=== PATIENT | male | born 1980 | race Caucasian/White ===

== ENCOUNTER → 2018-11-12 14:17 | Outpatient (CLI) | payer OTHER, SELFPAY ==
[2018-11-12 14:38] LABS: Basophils Absolute Auto 100 /uL (0-100); Basophils Percent Auto 0.6 % (0-2); Eosinophils Absolute Auto 0 /uL (0-450); Eosinophils Percent Auto 0.4 % (2-4); Hematocrit 42.2 % (41-53); Hemoglobin 13.2 g/dL (13.5-17.5); Lymphocytes Absolute Auto 1200 /uL (1100-4500); Lymphocytes Percent Auto 10.6 % (25-40); Mean Corpuscular HGB Conc 31.3 % (30-36); Mean Corpuscular Hemoglobin 26.1 PG (26-34); Mean Corpuscular Volume 83.3 fL (80-100); Monocytes Absolute Auto 600 /uL (0-900); Monocytes Percent Auto 5.1 % (3-14); Neutrophils Absolute Auto 9200 /uL (1500-7000); Neutrophils Percent Auto 83.3 % (50-75); Platelet Count 287 X10^3/uL (150-400); Red Blood Cell Count 5.07 X10^6/uL (4.5-5.9); Red Cell Distribution Width 16.8 % (11.6-14.8)
[2018-11-12 14:52] LABS: Add Manual Diff / Slide Review SLIDE REVIEW
[2018-11-12 15:18] LABS: RBC Morphology Normal Morphology
== END ==
PROVIDERS: Visit Provider Internal Medicine Gastroenterology
DX: K52.3 Indeterminate colitis (principal)
CPT/HCPCS: 36415; 85025

== ENCOUNTER → 2018-11-18 13:39 | Outpatient (CLI) | payer OTHER, SELFPAY ==
[2018-11-24 23:55] LABS: Calprotectin, Stool 661.7 mcg/g
== END ==
PROVIDERS: Visit Provider Internal Medicine Gastroenterology
DX: K52.3 Indeterminate colitis (principal)
CPT/HCPCS: 83993

== ENCOUNTER → 2019-05-05 15:03 | Outpatient (CLI) | payer OTHER, SELFPAY ==
[2019-05-05 16:14] LABS: Add Manual Diff / Slide Review NO; Basophils Absolute Auto 0 /uL (0-100); Basophils Percent Auto 0.5 % (0-2); Eosinophils Absolute Auto 0 /uL (0-450); Eosinophils Percent Auto 0.3 % (2-4); Hematocrit 44.6 % (41-53); Hemoglobin 14.9 g/dL (13.5-17.5); Lymphocytes Absolute Auto 2000 /uL (1100-4500); Lymphocytes Percent Auto 21.1 % (25-40); Mean Corpuscular HGB Conc 33.3 % (30-36); Mean Corpuscular Hemoglobin 30.1 PG (26-34); Mean Corpuscular Volume 90.3 fL (80-100); Monocytes Absolute Auto 700 /uL (0-900); Monocytes Percent Auto 7.2 % (3-14); Neutrophils Absolute Auto 6600 /uL (1500-7000); Neutrophils Percent Auto 70.9 % (50-75); Platelet Count 201 X10^3/uL (150-400); Red Blood Cell Count 4.94 X10^6/uL (4.5-5.9); Red Cell Distribution Width 13.8 % (11.6-14.8); White Blood Cell Count 9.2 X10^3/uL (4.5-11.0)
== END ==
PROVIDERS: Visit Provider Internal Medicine Gastroenterology
DX: K50.90 Crohn's disease, unspecified, without complications (principal)
CPT/HCPCS: 36415; 85025

== ENCOUNTER → 2019-05-13 13:17 | Outpatient (CLI) | payer OTHER, SELFPAY ==
[2019-05-13 15:41] LABS: Clostridium Difficile Tox PCR Negative for C. diff
== END ==
PROVIDERS: PCP Internal Medicine Gastroenterology; Visit Provider Internal Medicine Gastroenterology
DX: K50.90 Crohn's disease, unspecified, without complications (principal)
CPT/HCPCS: 87045; 87177; 87329; 87493; 87899

== ENCOUNTER 2019-11-20 17:13 | Emergency (ER) | payer OTHER, SELFPAY ==
[2019-11-20 17:21] VITALS: BP 127/76; PULSE 84; RESP 17; TEMP 37.1; O2SAT 99; BMI 24.4
--- NOTE | 2019-11-20 17:47 | PC.NURSE ---
Patient reports burn to left foot at 0100 last evening. States spilled a cup of hot water onto foot. Wound site is currently open to air and wound approximately 3x4cm. Patient denies pain to location. Pedal pulse +2. No limitations in ROM to LLE.
[2019-11-20] MEDS: BACITRACIN OINT 0.9 GM PCKT 3 APPLIC TOP (18:14)
[2019-11-20] MEDS: TET,DIPH,PERTUSS(ACELL),VAC/PF 0.5 ML SYRINGE IM (18:14)
--- NOTE | 2019-11-20 18:22 | ED_ITS ---
HPI - Burn/Smoke Inhalation <RIDGE Ricketts - Last Filed: 11/20/19 18:32> General Chief complaint: Burn/Smoke Inhalation Stated complaint: burn on left foot, hot water Time Seen by Provider: 11/20/19 17:15 Source: patient Mode of arrival: Ambulatory Limitations: no limitations History of Present Illness HPI Narrative: 39yo male presents to the ED for a burn on his left foot. Patient states last evening he spilled boiling water on the top of his left foot. He states afterwards he splashed a small amount of cold water on his foot. He is here mainly because he is afraid it may get infected. He denies any severe pain, fevers, pus, discharge, difficulty moving foot, nausea, vomiting, diarrhea, or any other concerns. Patient denies any injury to the sole of his foot. Related Data Previous Rx's Medication Instructions Recorded oxycodone 5 - 10 mg PO Q6HP PRN #40 tab 11/09/16 Review of Systems <RIDGE Ricketts - Last Filed: 11/20/19 18:32> Review of Systems Narrative: REVIEW OF SYSTEMS: GENERAL: Denies fever or chills. HENT: No head trauma. CARDIOVASCULAR: No chest pain or syncope. RESPIRATORY: No cough. GASTROINTESTINAL: No nausea or vomiting. GENITOURINARY: No flank pain or dysuria. MUSCULOSKELETAL: Complains of burn to left foot, see HPI. INTEGUMENTARY: No rash, lesions, or pruritus. NEURO: No numbness, tingling. PSYCH: No behavior or mood changes. Patient History <RIDGE Ricketts - Last Filed: 11/20/19 18:32> Medical History No significant medical problems (Acute) Social History Smoking Status: Never smoker Smoking Status: Never smoker alcohol intake frequency: holidays/special occasions only Substance Use Type: does not use Exam <RIDGE Ricketts - Last Filed: 11/20/19 18:32> Initial Vital Signs Initial Vital Signs: Vital Signs Temperature 98.8 F 11/20/19 17:21 Pulse Rate 84 11/20/19 17:21 Respiratory Rate 17 11/20/19 17:21 Blood Pressure 127/76 11/20/19 17:21 Pulse Oximetry 99 11/20/19 17:21 PHYSICAL EXAMINATION: GENERAL: Well groomed, alert, and cooperative. Answers questions promptly and appropriately. Vital signs noted. HENT: Normocephalic, atraumatic. EYES: Symmetrical, sclera white, no periorbital swelling.. RESPIRATORY: Normal respiratory rate, trachea midline, airway patent. No stridor, nasal flaring or accessory muscle use. MUSCULOSKELETAL: An 5 cm in diameter 2nd degree burn noted to the top of foot, approximately 11 cm of 1st degree burn ( <1%). Burn does not extend over joints . No purulent drainage. Patient has full range of motion of left foot against resistance without pain. No edwards or lesions to the bottom of foot. Normal gait and coordination. Equal tone and mass bilaterally. EXTREMITIES: CMS intact. Pedal pulses 2+ and intact bilaterally. SKIN: Warm, dry, soft, appropriate color for ethnicity. No lesions, rashes, or wounds. NEURO: Alert and Oriented X 3. No sensory deficits. PSYCH: Appropriate affect and mood. <Andres Thayer MD - Last Filed: 11/20/19 18:51> Initial Vital Signs Initial Vital Signs: Vital Signs Temperature 98.8 F 11/20/19 17:21 Pulse Rate 84 11/20/19 17:21 Respiratory Rate 17 11/20/19 17:21 Blood Pressure 127/76 11/20/19 17:21 Pulse Oximetry 99 11/20/19 17:21 Course <RIDGE Ricketts - Last Filed: 11/20/19 18:32> Course Course Narrative: Patient's Tdap was updated. Orders Ordered: Discontinued Medications Bacitracin (Bacitracin) 3 applic TOP NOW ONE Stop: 11/20/19 17:54 Last Admin: 11/20/19 18:14 Dose: 3 applic Documented by: RMARTIN Diphtheria/Tetanus/Acell Pertussis (Adacel) 0.5 ml IM .ONCE ONE Stop: 11/20/19 18:12 Last Admin: 11/20/19 18:14 Dose: 0.5 ml Documented by: RMROSARIO Vital Signs Vital signs: Vital Signs - 8 hr 11/20/19 17:21 11/20/19 18:29 Temperature 98.8 F Pulse Rate 84 72 Respiratory Rate 17 16 Blood Pressure 127/76 117/71 Pulse Oximetry 99 98 <Andres Thayer MD - Last Filed: 11/20/19 18:51> Orders Ordered: Discontinued Medications Bacitracin (Bacitracin) 3 applic TOP NOW ONE Stop: 11/20/19 17:54 Last Admin: 11/20/19 18:14 Dose: 3 applic Documented by: RMARTIN Diphtheria/Tetanus/Acell Pertussis (Adacel) 0.5 ml IM .ONCE ONE Stop: 11/20/19 18:12 Last Admin: 11/20/19 18:14 Dose: 0.5 ml Documented by: KRISTINE Vital Signs Vital signs: Vital Signs - 8 hr 11/20/19 17:21 11/20/19 18:29 Temperature 98.8 F Pulse Rate 84 72 Respiratory Rate 17 16 Blood Pressure 127/76 117/71 Pulse Oximetry 99 98 MDM - Burn/Smoke Inhalation <RIDGE Ricketts - Last Filed: 11/20/19 18:32> Medical Records Attestation: I reviewed the patient's medical records. Lab Data Attestation: I reviewed the patient's lab results. MDM Narrative Medical decision making narrative: 39-year-old male presents emergency department for a 1st and second-degree burn on the top of left foot. No signs of infection. Within 1% of areas burn, burn does extend over joints. Bacitracin was applied, wound was dressed. Tdap was updated. Patient was educated extensively about watching for signs of infection, he was encouraged to clean the wound frequently and apply Neosporin or bacitracin. Was encouraged to follow up with burn center or primary care. Return precautions given for new or worsening symptoms. Patient agreed to plan of care verbalized understanding. Discharge Plan Departure Patient Disposition: Home Clinical Impression: Burn of foot Qualifiers: Encounter type: initial encounter Laterality: left Burn degree: partial thickness (2nd degree) Qualified Code(s): T25.222A - Burn of second degree of left foot, initial encounter Discharge Date/Time: 11/20/19 18:30 Instructions: DI for [place] Activity Restrictions/Additional Instructions: Thank you for entrusting me with your care today. As discussed, a dressing was placed on your burn, leave this in place for the next 24 hours. After that, you may remove the dressing. Wash your foot with cool water in the shower for 3+ minutes daily. Apply Bacitracin or Neosporin to the area morning and night for the next 2 weeks. Do gentle stretches with your foot 3 to 4 times a day to help your skin heal without tight restrictions. Try to keep your foot out ever shoe as much as possible. In your foot is in your shoe, dressed your wound with caused. Follow-up with your primary care provider in 1-2 weeks for further evaluation. Watch for signs of infection such as redness, pus, pain, worsening swelling, or fevers--if these occur, please be seen immediately. Prescriptions: No Action oxycodone 5 MG tablet 5 - 10 mg PO Q6HP PRNQty: 40 RF: 0 Referrals: Kimberlee Segovia MD [Primary Care Provider] - Stand Alone Forms: Work Release Note
--- NOTE | 2019-11-20 18:24 | PC.NURSE ---
Bacitracin applied to burn and covered with bandage.
[2019-11-20 18:29] VITALS: BP 117/71; PULSE 72; RESP 16; O2SAT 98
== END 2019-11-20 18:30 | disposition home or self-care (01) ==
PROVIDERS: Emergency Provider Nurse Practitioner; PCP Internal Medicine Gastroenterology
DX: T25.222A Burn of second degree of left foot, initial encounter (principal); X12.XXXA Contact with other hot fluids, initial encounter; Z23 Encounter for immunization
CPT/HCPCS: 90471; 99283; 90715

== ENCOUNTER 2020-01-03 23:48 | Emergency (ER) | payer OTHER, SELFPAY ==
[2020-01-03 23:55] VITALS: BP 144/77; PULSE 70; RESP 15; TEMP 36.6; O2SAT 96; BMI 23.7
--- NOTE | 2020-01-04 00:12 | DI.CT.S_ITS ---
PROCEDURE: CT KIDNEY URETER BLADDER (KUB) INDICATIONS: severe lower back and flank pain, hematuria TECHNIQUE: Noncontrast 5 mm thick sections acquired from the diaphragms to the symphysis. 5 mm thick coronal and sagittal reformats were then performed. For radiation dose reduction, the following was used: automated exposure control, adjustment of mA and/or kV according to patient size. COMPARISON: [facility], CR, ABDOMEN 2 VIEW, 11/08/2016, 7:14. [facility], CT, ABDOMEN/PELVIS WITH CONTRAST, 10/09/2015, 15:12. [facility], CR, ABDOMEN ACUTE SERIES, 08/31/2015, 13:03. [facility], CT, ABDOMEN/PELVIS WITH CONTRAST, 08/30/2015, 12:09. FINDINGS: Image quality: Excellent. Lung bases: Lung bases are clear. Heart size is normal. Urinary system: Both kidneys are normal in size. No kidney stones. No hydronephrosis or perinephric fat stranding. Both ureters appear non-dilated throughout their expected courses. Bladder wall thickness is normal; no calcified bladder stones. Other solid organs: Liver is normal in size. Gallbladder is normal. Pancreas is normal in contours. Spleen is normal in size. No adrenal nodules. Peritoneum and bowel: Unenhanced bowel loops demonstrate normal wall thickness and caliber. No free fluid or air. Nodes and vessels: No retroperitoneal or mesenteric adenopathy by size criteria. Aorta and inferior vena cava are normal in caliber. Abdominal wall: No ventral hernias. Pelvis: No free pelvic fluid. No inguinal hernias or adenopathy. Bones: No suspicious bony lesions. No vertebral body compression fractures. IMPRESSION: 1. No urinary stone or hydronephrosis. 2. No acute intra-abdominal or pelvic process. No significant discrepancy with the retail shift supervisor radiology preliminary report. Dictated by: Az Camacho M.D. on 01/04/2020 at 7:44 Approved by: Az Camacho M.D. on 01/04/2020 at 7:47
--- NOTE | 2020-01-04 00:28 | ED.BACK ---
HPI - Back Pain/Injury General Chief Complaint: Back Pain/Injury Stated Complaint: lower back pain Time Seen by Provider: 01/04/20 00:00 Source: patient Mode of arrival: Ambulatory Limitations: no limitations History of Present Illness HPI Narrative: 39M non smoker with history of colitis presents with the chief complaint of a few days of left lower back pain. He states it started, gradually, after lifting some heavy weights a few days ago. Since then he has had increasing left lower back pain. He states is worse with motion and improves with rest. He states it radiates down into his left buttocks a bit but does not extend into his leg. He denies numbness, tingling or weakness. He denies any loss of control of bowel or bladder. He denies any footdrop. He denies any significant midline pain nor fever. He denies dysuria, frequency or urgency. MD Complaint: back pain Onset (ago): hour(s) Duration: intermittent Similar Symptoms Previously: Yes Location: left flank Severity: moderate Quality: sharp and aching Radiation: flank Relieving factors: none Exacerbating factors: none Associated symptoms: denies other symptoms Related Data Previous Rx's Medication Instructions Recorded oxycodone 5 - 10 mg PO Q6HP PRN #40 tab 11/09/16 cyclobenzaprine 10 mg PO TID PRN #14 tab 01/04/20 ketorolac 10 mg PO Q6H PRN #14 tab 01/04/20 ondansetron 4 mg PO TID-QID PRN #10 tab 01/04/20 Allergies Allergy/AdvReac Type Severity Reaction Status Date / Time No Known Drug Allergies Allergy Verified 01/03/20 23:59 Review of Systems Constitutional Constitutional: Denies chills, Denies fatigue, Denies fever(s), Denies frequent falls, Denies lethargy and Denies weakness Eyes Eyes: Denies change in vision, Denies eye discharge, Denies irritation and Denies loss of vision ENT Ears, Nose, Mouth, and Throat: Denies change in voice, Denies dizziness, Denies neck pain, Denies sore throat and Denies throat swelling Cardiovascular Cardiovascular: Denies chest pain, Denies irregular heart rhythm, Denies lightheadedness, Denies palpitations, Denies dyspnea, Denies dyspnea on exertion and Denies orthopnea Respiratory Respiratory: Denies cough, Denies dyspnea, Denies dyspnea on exertion and Denies wheezing Gastrointestinal Gastrointestinal: Denies abdominal pain, Denies change in bowel habits, Denies diarrhea, Denies nausea and Denies vomiting Genitourinary Comments: Flank pain Musculoskeletal Musculoskeletal: Denies neck pain and Denies numbness Integumentary/Breasts Skin/Breast: Denies pruritus, Denies erythema, Denies rash and Denies wounds Neurologic Neurologic: Denies behavioral changes, Denies confusion, Denies dizziness, Denies frequent falls, Denies loss of vision, Denies numbness and Denies weakness Psychiatric Psychiatric: Denies anxiety, Denies behavioral changes, Denies confusion, Denies depression, Denies homicidal ideation and Denies suicidal ideation Endocrine Endocrine: Denies fatigue, Denies flushing and Denies palpitations Hematologic/Lymphatic Hematologic/Lymphatic: Denies easy bruising Allergic/Immunologic Allergic/Immunologic: Denies urticaria, Denies throat swelling and Denies wheezing Patient History Medical History No significant medical problems (Acute) Social History Smoking Status: Never smoker Smoking Status: Never smoker alcohol intake frequency: holidays/special occasions only Substance Use Type: does not use Exam Narrative Exam Narrative: GENERAL: [39] year old patient appears stated age. Well-nourished, well-developed patient, in mild distress. HEAD: Atraumatic. Normocephalic. EYES: Pupils equal round and reactive. Extraocular motions intact. No scleral icterus. No injection or drainage. ENT: Nose without bleeding, purulent drainage. Throat without erythema, tonsillar hypertrophy or exudate. Airway patent. NECK: Trachea midline. Non tender CARDIOVASCULAR: Regular rate and rhythm without murmurs, gallops, or rubs. RESPIRATORY: Clear to auscultation. Breath sounds equal bilaterally. No wheezes, rales, or rhonchi. GASTROINTESTINAL: Abdomen soft, non-tender, nondistended. EXTREMITIES: No edema or joint tenderness. BACK: Nontender without deformity or crepitance. No flank tenderness. NEURO: AOx3. SKIN: No rash or erythema of visible areas Initial Vital Signs Initial Vital Signs: Vital Signs Temperature 97.9 F 01/03/20 23:55 Pulse Rate 70 01/03/20 23:55 Respiratory Rate 15 01/03/20 23:55 Blood Pressure 144/77 H 01/03/20 23:55 Pulse Oximetry 96 01/03/20 23:55 Course Course Course Narrative: urine noted a small amount of blood. For this reason a CT KUB is ordered which showed no kidney stone or other abnormal findings. Orders Ordered: ED Orders 01/04/20 00:12 CT kidney ureter bladder (KUB) Stat Discontinued Medications Hydrocodone Bitart/Acetaminophen (Vicodin 5/325 Prepack) 1 bottle MISC SEEINSTR ONE Stop: 01/04/20 00:31 Last Admin: 01/04/20 00:36 Dose: 1 bottle Documented by: KRISTINE Cyclobenzaprine HCl (Flexeril 10 Mg Prepack) 1 bottle MISC SEEINSTR ONE Stop: 01/04/20 01:55 Last Admin: 01/04/20 02:03 Dose: 1 bottle Documented by: CYDNEY Ketorolac Tromethamine (Toradol) 60 mg IM NOW ONE Stop: 01/04/20 01:54 Last Admin: 01/04/20 02:03 Dose: 60 mg Documented by: CYDNEY Ondansetron HCl (Zofran Odt Prepack) 1 bottle MISC SEEINSTR ONE Stop: 01/04/20 00:31 Last Admin: 01/04/20 00:36 Dose: 1 bottle Documented by: KRISTINE Vital Signs Vital signs: Vital Signs - 8 hr 01/03/20 23:55 01/04/20 02:00 Temperature 97.9 F 97.9 F Pulse Rate 70 72 Respiratory Rate 15 16 Blood Pressure 144/77 H 130/81 Pulse Oximetry 96 99 MDM - Back Pain/Injury Lab Data Labs: Urine Dip Bedside Urine Glucose Negative Bedside Urine Bilirubin - Negative Bedside Urine Ketone - Negative Urine Specific [place] 1.010 Bedside Urine Occult Blood +/- Bedside Urine pH 6.0 Bedside Urine Protein - Negative Bedside Urine Urobilinogen - Negative Bedside Urine Nitrite - Negative Bedside Urine Leukocytes - Negative Esterase Imaging Data CT scan - abdomen/pelvis: Radiologist's Impression: No obstructive uropathy no kidney stone no bowel obstruction, ascites, or free air Discharge Plan Departure Patient Disposition: Home Clinical Impression: Back pain Qualifiers: Back pain location: low back pain Chronicity: acute Back pain laterality: left Sciatica presence: without sciatica Qualified Code(s): M54.5 - Low back pain Discharge Date/Time: 01/04/20 02:15 Instructions: DI for Low Back Pain, DI for Back Spasm Activity Restrictions/Additional Instructions: *You have been diagnosed with [ acute left lower back pain ] *What to do: *Take medications as directed *Follow up with your primary care provider in 2-3 days, call for an appointment. Let them know you were seen in the Emergency Department and that we ask that you be seen in follow up *Return to ER if you should have any new, worsening or concerning symptoms Prescriptions: New ketorolac 10 mg tablet 10 mg PO Q6H PRN (Reason: pain) Qty: 14 RF: 0 ondansetron 4 mg tablet,disintegrating 4 mg PO TID-QID PRN (Reason: nausea and vomiting) Qty: 10 RF: 0 cyclobenzaprine 10 mg tablet 10 mg PO TID PRN (Reason: muscle spasm) Qty: 14 RF: 0 No Action oxycodone 5 MG tablet 5 - 10 mg PO Q6HP PRNQty: 40 RF: 0 Referrals: Kimberlee Segovia MD [Primary Care Provider] - Stand Alone Forms: Work Release Note
[2020-01-04] MEDS: HYDROCODONE/ACET 5/325 PREPACK 1 BOTTLE MISC (00:36)
[2020-01-04] MEDS: ONDANSETRON 4 MG ODT PREPACK 1 BOTTLE MISC (00:36)
[2020-01-04 02:00] VITALS: BP 130/81; PULSE 72; RESP 16; TEMP 36.6; O2SAT 99
[2020-01-04] MEDS: CYCLOBENZAPRINE 10 MG PREPACK 1 BOTTLE MISC (02:03)
[2020-01-04] MEDS: KETOROLAC 60 MG/2 ML VIAL IM (02:03)
== END 2020-01-04 02:15 | disposition home or self-care (01) ==
PROVIDERS: Emergency Provider Emergency Medicine; PCP Internal Medicine Gastroenterology
DX: M54.5 Low back pain (principal)
CPT/HCPCS: 74176; 81003; 96372; 99284; J1885

== ENCOUNTER → 2021-07-22 15:50 | Outpatient (CLI) | payer OTHER, SELFPAY ==
[2021-07-22 17:18] LABS: COVID19 -Nasal RAPID Negative (Negative)
== END ==
PROVIDERS: Referring Provider Family Medicine Sleep Medicine; Visit Provider Family Medicine Sleep Medicine
DX: Z20.822 Contact with and (suspected) exposure to COVID-19 (principal)
CPT/HCPCS: 87635; C9803

== ENCOUNTER 2021-07-24 13:31 | Day surgery (SDC) | payer OTHER, SELFPAY ==
--- NOTE | 2021-07-24 | PATH_ITS ---
[facility] Accession Number: [id number] No. of containers..02 Tissue . 01 Material submitted: . PART A: colon - COLON ANASTOMOSIS PART B: colon - LEFT COLON . 01 Clinical history: . B: RULE OUT CROHNS DYSPLASIA . 02 Diagnosis: A. Colon Anastomosis, Biopsies: Ileocolonic mucosa with mild active enteritis. Negative for granulomas, dysplasia or malignancy. . B. Left Colon, Biopsies: Colonic mucosa with no significant diagnostic abnormality. Negative for active inflammation, granulomas, dysplasia, and malignancy. . . . MRV 07/26/2021 1044 Local . 02 Comment: A. The findings in the anastomosis biopsy are compatible with the clinical history of Crohn's disease. . 02 Electronically signed: . Julio Perea MD, PhD, Pathologist NPI- [id number] . 01 Gross description: . Part A: COLON ANASTOMOSIS: Received in formalin are 3 fragment(s) of nelson, soft tissue measuring 0.1 x 0.1 x 0.1 cm to 0.3 x 0.3 x 0.3 cm submitted entirely in 1 cassette(s) Part B: LEFT COLON: Received in formalin are multiple fragment(s) of nelson, soft tissue measuring 0.1 x 0.1 x 0.1 cm to 0.3 x 0.3 x 0.2 cm submitted entirely in 1 cassette(s) /DAYSI 07/25/2021 1848 Local . 02 Pathologist provided ICD-10: K50.90 . 02 CPT . 261335, 877123 Specimen Comment: A courtesy copy of this report has been sent to [phone] Specimen Comment: [phone] Performed at: [address], [place] [id number] MD Romario Louis MD Phone: [phone] [facility]formed at: [facility] [address] [place] [id number] MD Colleen Naidu MD Phone: [phone]
[2021-07-24 13:53] VITALS: BP 122/74; PULSE 73; RESP 14; TEMP 36.6; O2SAT 98; BMI 25.0
[2021-07-24] MEDS: SODIUM CHLORIDE 0.9% 1,000 ML 84 ML IV (14:06)
--- NOTE | 2021-07-24 14:23 | PM.HP.1 ---
History of Present Illness History of Present Illness Date Patient Seen: 07/24/21 Chief complaint: SDC Narrative: History of Crohn's disease need for follow-up colonoscopy Patient History Medical History (Updated 07/23/21 @ 15:18 by Deborah Saavedra RN) Crohn disease Surgical History (Updated 07/23/21 @ 15:18 by Deborah Saavedra RN) History of partial colectomy Family & Social History Social History: household members family Tobacco & Substance use: Smoking Status Never smoker alcohol intake never alcohol intake frequency other Substance Use Type does not use Meds Home Medications and Allergies Home Medications Medication Instructions Recorded Confirmed Type azathioprine 50 mg tablet 100 mg PO DAILY 07/23/21 07/24/21 History mesalamine 1.2 gram tablet,delayed 2.4 g PO BID 07/23/21 07/24/21 History release ustekinumab 90 mg/mL subcutaneous 90 mg SUBCUT Q4W 07/23/21 07/24/21 History syringe (Stelara) Allergies Allergy/AdvReac Type Severity Reaction Status Date / Time No Known Drug Allergies Allergy Verified 01/03/20 23:59 Exam Vital Signs (past 8 hours): - 07/24/21 13:53 Temperature 97.8 F Pulse Rate 73 Respiratory Rate 14 Blood Pressure 122/74 Pulse Oximetry 98 Oxygen Delivery Method Room Air Narrative Exam Narrative: Oropharynx free of lesions Chest clear to auscultation percussion Cardiac exam reveals no S3 or murmurs Assessment & Plan Assessment & Plan narrative: History of Crohn's disease need for follow-up colonoscopy. Risks, benefits, alternatives have been explained. I expect to find that he has fully healed Time Spent With Patient Critical Care time: I spent a total of [] minutes of critical care time on this patient's care today; this time is exclusive of procedural time.
--- NOTE | 2021-07-24 14:24 | PM.OP.COLON ---
Operative Date/Time/Diagnoses Date of procedure: 07/24/21 Pre-op diagnosis: See indication and findings Procedure & Clinicians Study performed: Colonoscopy Indications: History of Crohn's disease Surgeon: Kimberlee Segovia Procedure Notes Procedure in detail: After informed consent was obtained the patient was placed in left lateral decubitus position. The video colonoscope was introduced the rectum slowly advanced cecum. On slow withdrawal mucosa was carefully evaluated. Preparation was good. The scope was removed. The patient tolerated procedure well. Blood loss none Complications none Sedation mac Findings 1. Normal terminal ileum 2. Anastomosis at 75 cm showing mild inflammation and 1 small erosion/ulcer. Biopsies were taken 3. There was virtually no inflammation in the remaining left colon other than very subtle patchy erythema at times. Biopsies were taken to every 10 cm in placed in a single bottle Certainly Parth's colonoscopy is much better than it had been the last time he had 1 done in 2017. I do not think any other treatment is warranted at this time given he is under such good control and has minimal inflammation. He should have repeat colonoscopy in 2-3 years.
[2021-07-24 15:12] VITALS: BP 91/55; PULSE 67; RESP 16; TEMP 36.4; O2SAT 96
[2021-07-24 15:16] VITALS: BP 91/58; PULSE 62; RESP 12; O2SAT 97
[2021-07-24 15:21] VITALS: BP 103/66; PULSE 71; RESP 12; O2SAT 100
[2021-07-24 15:26] VITALS: BP 97/69; PULSE 67; RESP 12; O2SAT 97
[2021-07-24 15:30] VITALS: BP 107/70; PULSE 68; RESP 16; O2SAT 97
--- NOTE | 2021-07-24 15:37 | SUR.PHASEII ---
Addendum entered by Leslie Ross R.N. 07/24/21 15:41: 1535-home instructions gone over with patient. copies left with patient. Informed ride will text him when she gets here, and given call light to notify us when time is up. refill juices. no complaints voiced. wide awake and alert. Original Note: 1530-recieved from phase 1 . iv out,vss . no complaints. meets criteria. awaiting ride-unavailble til 1630. all dressed and ready.
--- NOTE | 2021-07-24 16:44 | SUR.PHASEII ---
1644-ride called by patient...10 minutes away. patient care transitioned to Kisha Tabor Rn. Dressed/ready to go. no changes with status.
== END 2021-07-24 16:50 | disposition home or self-care (01) ==
PROVIDERS: PCP Family Medicine; Referring Provider Internal Medicine Gastroenterology; Visit Provider Internal Medicine Gastroenterology
PROC: 0DJD8ZZ Inspection of Lower Intestinal Tract, Via Natural or Artificial Opening Endoscopic (ICD-10-PCS; CPT 45378; principal; 2021-07-24 15:30)
DX: K50.90 Crohn's disease, unspecified, without complications (principal)
CPT/HCPCS: 45380; J2704

== ENCOUNTER 2023-09-21 14:20 | Day surgery (SDC) | payer OTHER, SELFPAY ==
--- NOTE | 2023-09-21 | PATH_ITS ---
[facility] Accession Number: [id number] No. of containers..03 Tissue . 01 Material submitted: . PART A: ileum - NAV-TERMINAL ILEUM PART B: colon - LEFT COLON BIOPSY PART C: rectum - RECTUM BIOPSY . 01 Diagnosis: Part A: NAV-TERMINAL ILEUM: Ileal mucosa with mild congestion, with no other diagnostic alterations. No active inflammation, granulomas, or dysplasia identified. . Part B: LEFT COLON BIOPSY: Colonic mucosa with mild crypt architectural distortion, compatible with quiescent colitis. No active inflammation, granulomas, dysplasia, or malignancy identified. . Part C: RECTUM BIOPSY: Colonic mucosa with mild crypt architectural distortion, compatible with quiescent colitis. No active inflammation, granulomas, dysplasia, or malignancy identified. [facility] 09/28/2023 1229 Local . 01 Electronically signed: . Romario Louis MD, Pathologist NPI- [id number] . 01 Gross description: . A. Received in formalin with two patient identifiers and neoterminal ileum, are two nelson fragments of skin, both measuring 0.3 cm in greatest dimension. Submitted entirely in A1. . B. Received in formalin with two patient identifiers and left colon biopsy, are two nelson soft tissue fragments, 0.3 to 0.4 cm in greatest dimension. Submitted entirely in B1. . C. Received in formalin with two patient identifiers and rectum biopsy, are two nelson soft tissue fragments, both measuring 0.4 cm in greatest dimension. Submitted entirely in C1. ([id number]) /V 09/28/2023 1229 Local . 01 Pathologist provided ICD-10: K50.10, R85.7 . 01 CPT . 320696, 293776, 082720 Specimen Comment: A courtesy copy of this report has been sent to [phone] Performed at: [address] [facility] [address], [place], [place] [id number] MD Romario Louis MD Phone: [phone]
[2023-09-21 15:08] VITALS: BP 99/63; PULSE 70; RESP 18; TEMP 36.8; O2SAT 98
--- NOTE | 2023-09-21 15:36 | PM.HP.1 ---
History of Present Illness History of Present Illness Date Patient Seen: 09/21/23 Time Patient Seen: 15:36 Chief complaint: Colonoscopy Narrative: I reviewed the recent note by Dr. Tomas. No significant changes. The patient feels as though he is in clinical remission. A disease activity assessment is pursued today via colonoscopy to help guide potential change in therapy. [facility] Medical History Crohn disease Surgical History History of partial colectomy Social History household members: family Smoking Status: Never smoker alcohol intake: current Meds Home Medications and Allergies Home Medications Medication Instructions Recorded Confirmed Type azathioprine 50 mg tablet 100 mg PO DAILY 07/23/21 09/21/23 History mesalamine 1.2 gram tablet,delayed 2.4 g PO BID 07/23/21 07/24/21 History release ustekinumab 90 mg/mL subcutaneous 90 mg SUBCUT Q4W 07/23/21 09/21/23 History syringe (Stelara) Allergies Allergy/AdvReac Type Severity Reaction Status Date / Time No Known Drug Allergies Allergy Verified 09/21/23 15:18 Review of Systems Review of Systems ROS: Yes All systems reviewed with the patient and are negative except as otherwise documented Exam Vital Signs (past 8 hours): - 09/21/23 15:08 Temperature 98.2 F Pulse Rate 70 Respiratory Rate 18 Blood Pressure 99/63 Pulse Oximetry 98 Oxygen Delivery Method Room Air Oxygen Delivery Method Room Air Const General: cooperative HENMT Head: normal to inspection Eyes General: appearance normal, both eyes and all related structures Neck Neck: normal visual inspection Chest Chest: normal inspection of the chest Resp Effort & Inspection: normal respiratory effort Cardio Rate: regular rate GI Inspection: normal to inspection Skin General: no rashes or lesions noted Neuro General: patient alert and patient awake Extrem General: normal to inspection and no pedal edema Psych Appearance: grossly normal Assessment & Plan Assessment & Plan narrative: 43-year-old male with Crohn's colitis status post segmental colectomy. Diagnostic colonoscopy is pursued today.
--- NOTE | 2023-09-21 15:39 | PM.PREOP ---
Pre-operative Note Interval Note History & Physical reviewed/Exam performed by Physician: Yes Changes to H&P: No ASA Class (for procedural sedation): II
--- NOTE | 2023-09-21 16:55 | PM.OP.COLON ---
Operative Date/Time/Diagnoses Date of procedure: 09/21/23 Time of procedure: 16:55 Pre-op diagnosis: History of Crohn's colitis. Here for disease activity assessment Post-op diagnosis: same Procedure & Clinicians Study performed: Colonoscopy and terminal ileoscopy with biopsies Same procedure as scheduled: Yes Indications: History of Crohn's colitis. Surgeon: Duane Huggins Procedure Notes SCOAP/Timeout: Done Procedure in detail: After the risks and benefits were explained, written and verbal informed consent was obtained. The patient was brought into the procedure room and placed into the left lateral decubitus position. Conscious sedation medication was applied as per nursing documentation. Digital rectal examination was accomplished. The scope was introduced into the patient and advanced under direct visualization to the rodolfo terminal ileum as identified by a widely patent anastomosis at about 35 cm from the anal verge. The scope was slowly withdrawn to carefully examine the mucosa for any defects or lesions. Comprehensive imaging was accomplished throughout the rectum including the dentate line. The colon was decompressed, the scope was then removed from the patient who tolerated the procedure well. Adult colonoscope Bowel prep adequate Scope withdrawal time: Not applicable Sedation minutes: 13 Complications: none Impression: There was no overt ulceration evident throughout the colon. No erosions. Mild erythema to the left colonic mucosa was identified. Grade 1-2 internal hemorrhoids were noted on direct views. The end-to-side ileocolonic anastomosis was widely patent at around 35 cm from the anal verge. I did not appreciate any signs of active inflammation or ulceration at the anastomosis proper. Approximately 30 cm of terminal ileum was easily evaluated and appeared to be within normal limits. There was a diffuse mild erythematous appearance to the rodolfo terminal ileum but no overt ulcerations or erosions. A set of biopsies was taken from the neoterminal ileum, left colon, and finally the rectum for histologic examination. No polyps mass lesions or other pathology appreciated throughout. Endoscopic diagnosis 1. Evidence of extended right hemicolectomy 2. Patent ileocolonic anastomosis 3. No overt signs of active inflammation at this time. Biopsies acquired for microscopic examination. Post-procedure Plan for aftercare: 1. Await histology. 2. Continue current medical regimen and follow-up for further discussion in GI clinic. 3. Considering the diagnosis of Crohn's was made many years ago, consider surveillance colonoscopy contingent on histology results. Disposition: PACU
[2023-09-21 17:02] VITALS: BP 105/75; BP 99/69; PULSE 70; PULSE 71; RESP 15; RESP 16; TEMP 36.4; O2SAT 98
[2023-09-21] MEDS: LACTATED RINGERS 1,000 ML 150 ML IV (17:05)
[2023-09-21 17:07] VITALS: BP 98/62; PULSE 68; RESP 16; O2SAT 98
[2023-09-21 17:18] VITALS: BP 98/68; PULSE 71; RESP 14; O2SAT 98
== END 2023-09-21 17:19 | disposition home or self-care (01) ==
PROVIDERS: PCP Family Medicine; Referring Provider Internal Medicine Gastroenterology; Visit Provider Internal Medicine Gastroenterology
PROC: 0DJD8ZZ Inspection of Lower Intestinal Tract, Via Natural or Artificial Opening Endoscopic (ICD-10-PCS; CPT 45378; principal; 2023-09-21 15:30)
DX: K50.10 Crohn's disease of large intestine without complications (principal); K64.0 First degree hemorrhoids
CPT/HCPCS: 45380

== ENCOUNTER 2023-12-12 18:09 | Emergency (ER) | payer OTHER, SELFPAY ==
[2023-12-12 18:18] VITALS: BP 128/82; PULSE 78; RESP 15; TEMP 36.2; O2SAT 96; BMI 27.0
--- NOTE | 2023-12-12 18:21 | DI.RAD.S_ITS ---
PROCEDURE: XR TOE RT MIN 2V INDICATIONS: toe injury,kicked something on accident TECHNIQUE: 3 views of the 5th toe(s) acquired. COMPARISON: None. FINDINGS: Bones: No fractures or dislocations. No suspicious bony lesions. Soft tissues: No suspicious soft tissue densities. IMPRESSION: No acute bony abnormality. Approved by: Pallavi Michaels M.D.,Ph.D. on 12/12/2023 at 19:13
--- NOTE | 2023-12-12 19:18 | ED_ITS ---
HPI - Extremity Injury (Lower) General Chief Complaint: Extremity Injury, Lower Stated Complaint: R Foot Toe Injury Time Seen by Provider: 12/12/23 18:23 Source: patient Mode of arrival: Ambulatory History of Present Illness HPI Narrative: Patient is a 43-year-old male who states that he injured his little toe on his right foot there hitting it on an object. He states that the toenail on that side did get bent back. He was able to push it down and covered with a bandage. He has had continued discomfort but has been able to ambulate. Related Data Home Medications Medication Instructions Recorded Confirmed azathioprine 50 mg tablet 100 mg PO DAILY 07/23/21 09/21/23 mesalamine 1.2 gram tablet,delayed 2.4 g PO BID 07/23/21 07/24/21 release ustekinumab 90 mg/mL subcutaneous 90 mg SUBCUT Q4W 07/23/21 09/21/23 syringe (Stelara) Allergies Allergy/AdvReac Type Severity Reaction Status Date / Time No Known Drug Allergies Allergy Verified 12/12/23 18:18 Review of Systems Musculoskeletal Musculoskeletal: Reports system reviewed and no additional complaints, except as documented Integumentary/Breasts Skin/Breast: Reports system reviewed and no additional complaints, except as documented Neurologic Neurologic: Reports system reviewed and no additional complaints, except as documented Patient History Medical History Crohn disease Surgical History History of partial colectomy Social History household members: family Smoking Status: Never smoker alcohol intake: current Smoking Status: Never smoker alcohol intake frequency: 0-2 drinks per day Substance Use Type: does not use Exam Initial Vital Signs Initial Vital Signs: Vital Signs Temperature 97.1 F L 12/12/23 18:18 Pulse Rate 78 12/12/23 18:18 Respiratory Rate 15 12/12/23 18:18 Blood Pressure 128/82 12/12/23 18:18 Pulse Oximetry 96 12/12/23 18:18 Oxygen Delivery Method Room Air 12/12/23 18:18 Skin Other: Minor bruising to the little toe of the right foot Neuro Sensory Exam: no sensory deficits noted Extrem Other: Bruising to the toe of the right foot. Course Orders Ordered: ED Orders 12/12/23 18:21 XR toe RT min 2V Stat Vital Signs Vital signs: Vital Signs - 8 hr 12/12/23 18:18 Temperature 97.1 F L Pulse Rate 78 Respiratory Rate 15 Blood Pressure 128/82 Pulse Oximetry 96 Oxygen Delivery Method Room Air MDM - Extremity Injury (Lower) Imaging Data Extremity x-ray #1: Radiologist's Impression: PROCEDURE: XR TOE RT MIN 2V INDICATIONS: toe injury,kicked something on accident TECHNIQUE: 3 views of the 5th toe(s) acquired. COMPARISON: None. FINDINGS: Bones: No fractures or dislocations. No suspicious bony lesions. Soft tissues: No suspicious soft tissue densities. IMPRESSION: No acute bony abnormality. [facility] Narrative Medical decision making narrative: No fractures were noted on the x-rays. He was minor bruising to the little toe of the right foot. We did discuss how he could mason tape the little toe and this maybe helpful for any discomfort that he has. We discussed using ice. Will discharge patient home with return precautions. He expressed understanding and agreement with plan. Discharge Plan Departure Patient Disposition: Home Clinical Impression: Injury of toe on right foot Instructions: How to Mason Tape Activity Restrictions/Additional Instructions: No fractures noted on the x-rays. You can continue to put a Band-Aid over the little toenail to protect it. You can also mason tape the little toe to the toe next to it for comfort. Ice may be helpful as well. Return to the emergency department for new symptoms. Prescriptions: No Action azathioprine 50 mg tablet 100 mg PO DAILY mesalamine 1.2 gram tablet,delayed release (DR/EC) 2.4 g PO BID Stelara 90 mg/mL syringe 90 mg SUBCUT Q4W Referrals: Renaldo Rivera MD [Primary Care Provider] - Stand Alone Forms: Patient Portal/API
== END 2023-12-12 19:29 | disposition home or self-care (01) ==
PROVIDERS: Emergency Provider Emergency Medicine; PCP Family Medicine
DX: S99.921A Unspecified injury of right foot, initial encounter (principal); W22.8XXA Striking against or struck by other objects, initial encounter
CPT/HCPCS: 73660; 99281; 99283

== ENCOUNTER 2024-07-04 21:43 | Emergency (ER) | payer OTHER, SELFPAY ==
[2024-07-04 21:54] VITALS: BP 137/79; PULSE 81; RESP 16; TEMP 36.9; O2SAT 98; BMI 28.3
--- NOTE | 2024-07-04 21:59 | DI.RAD.S_ITS ---
PROCEDURE: XR ELBOW LT MIN 3V INDICATIONS: swelling of unknown origin TECHNIQUE: 3 views of the elbow were acquired. COMPARISON: None. FINDINGS: Bones: No fractures or dislocations. No suspicious bony lesions. Tiny olecranon process spur. Soft tissues: No elbow joint effusion. No suspicious soft tissue calcifications. There is moderate posterior left elbow soft tissue swelling predominantly focused over the olecranon process. IMPRESSION: Moderate posterior left elbow soft tissue swelling possibly related to olecranon bursitis given small olecranon process enthesophyte. Otherwise, no acute fracture or dislocation. No joint effusion. Dictated by: Tripp Coronel M.D. on 07/04/2024 at 22:53 Approved by: Tripp Coronel M.D. on 07/04/2024 at 22:54
--- NOTE | 2024-07-05 00:24 | ED.EXTPRO ---
HPI - Extremity Problem General Chief complaint: Extremity Problem,Nontraumatic Stated complaint: idiopathic swelling left elbow Time Seen by Provider: 07/04/24 21:53 Source: patient, RN notes reviewed and old records reviewed Mode of arrival: Ambulatory Limitations: no limitations History of Present Illness HPI Narrative: 44-year-old male history of intermittent colitis suspected to be ulcerative colitis who has had right hemicolectomy with ileocolonic anastomosis on Stelara and azathioprine with complaint of left elbow swelling. Patient states he woke up this morning noticed some swelling over the left elbow. He states it was red swollen irritated he knows to little scab but no other changes. He states he has been able to fully straighten extended without issue. States the redness is improved he states the swelling is improved. He can put weight on the elbow now she could not earlier today. He denied any fevers. No other skin changes. He has not had similar issues in the past. He does not recall any trauma does occasionally banged his elbow. 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 Patient states he was on medications including Stelara on azathioprine. He denies any allergies to meds. He has had prior partial colectomy with colostomy and reanastomosis, he has had prior surgery for facial bone fracture. Tobacco, occasional alcohol, no recreational drugs. Dr. Rivera is his primary care physician. He follows with Gastroenterology locally at [facility]. Related Data Home Medications Medication Instructions Recorded Confirmed azathioprine 50 mg tablet 100 mg PO DAILY 07/23/21 09/21/23 mesalamine 1.2 gram tablet,delayed 2.4 g PO BID 07/23/21 07/24/21 release ustekinumab 90 mg/mL subcutaneous 90 mg SUBCUT Q4W 07/23/21 09/21/23 syringe (Stelara) Allergies Allergy/AdvReac Type Severity Reaction Status Date / Time No Known Drug Allergies Allergy Verified 07/04/24 21:54 Review of Systems Review of Systems ROS Unobtainable: All systems reviewed & are unremarkable except as noted in HPI and below Patient History Medical History Crohn disease Surgical History History of partial colectomy Social History household members: family Smoking Status: Never smoker alcohol intake: current Smoking Status: Never smoker alcohol intake frequency: 0-2 drinks per day Exam Narrative Exam Narrative: GENERAL: Alert and oriented x three, well-appearing male no acute distress HEENT: Head normocephalic, atraumatic, EOMI, pupils reactive, face symmetric, moist mucous membranes NECK: Supple, full range of motion CARDIOVASCULAR: Regular rate and rhythm without murmurs, rubs or gallops. RESPIRATORY: Breath sounds equal bilaterally, no wheezes rales or rhonchi. ABDOMEN: Soft, nontender. Normoactive bowel sounds all 4 quadrants. No guarding or rebound, rigidity, no mass : No CVA tenderness EXTREMITIES: Normal range of motion, no clubbing or edema. Neurovascularly intact. Patient has some slight fullness over the olecranon, there is no warmth there has no erythema it is nontender patient has full flexion-extension with no bony tenderness. There is a healed scab over the olecranon but no other skin changes. NEUROLOGICAL: Cranial nerves II through XII grossly intact. Moving all extremities SKIN: Warm, dry, no petechiae, no rashes or lesions. Initial Vital Signs Initial Vital Signs: Vital Signs Temperature 98.4 F 07/04/24 21:54 Pulse Rate 81 07/04/24 21:54 Respiratory Rate 16 07/04/24 21:54 Blood Pressure 137/79 07/04/24 21:54 Pulse Oximetry 98 07/04/24 21:54 Oxygen Delivery Method Room Air 07/04/24 21:54 Course Orders Ordered: ED Orders 07/04/24 21:59 XR elbow LT min 3V Stat Vital Signs Vital signs: Vital Signs - 8 hr 07/04/24 21:54 Temperature 98.4 F Pulse Rate 81 Respiratory Rate 16 Blood Pressure 137/79 Pulse Oximetry 98 Oxygen Delivery Method Room Air MDM - Extremity (Nontraumatic) MDM Narrative Medical decision making narrative: Left elbow x-ray moderate posterior left elbow soft tissue swelling possibly related olecranon bursitis given small olecranon process enthesophyte. Otherwise no acute fracture or dislocation. No joint effusion. Patient has not history of what he describes as intermittent colitis possibly ulcerative colitis noted in his prior colonoscopy Crohn's disease. Patient has not had similar issues in the past his symptoms have actually significantly improved today this evening and he states the swelling and redness is much better you can actually put pressure on his elbow with only very minimal pain. Discussed with patient we will have watchful waiting, NSAIDs and follow up. If he develops warmth erythema fevers or increasing symptoms patient was to return for repeat evaluation. Did ask that he let his physician no is having very mild symptoms to follow up. Discharge Plan Departure Patient Disposition: Home Clinical Impression: Bursitis of left elbow Instructions: DI for Elbow Bursitis Activity Restrictions/Additional Instructions: Follow up as needed you appear to have a bursitis or some swelling/inflammation of the sac of fluid that is normally present over your elbow. This can happen for variety of reasons. You can take NSAIDs if it is painful sometimes these can be helpful to decrease inflammation. If you do a lot of moving of that elbow wearing something for compression like an Raffy wrap or brace maybe helpful. Please return if you develop fevers, new redness, rapidly worsening swelling, if you are unable to flex or straighten your arm, new weakness numbness or tingling or other new or concerning changes. Prescriptions: No Action azathioprine 50 mg tablet 100 mg PO DAILY mesalamine 1.2 gram tablet,delayed release (DR/EC) 2.4 g PO BID Stelara 90 mg/mL syringe 90 mg SUBCUT Q4W Referrals: Renaldo Rivera MD [Primary Care Provider] - Stand Alone Forms: Patient Portal/API/Survey
--- NOTE | 2024-07-05 00:37 | PC.NURSE ---
Patient's left elbow reassessed at this time, there has been a reduction in swelling and redness and heat since it was first assessed. Patient reports less pain.
== END 2024-07-05 00:44 | disposition home or self-care (01) ==
PROVIDERS: Emergency Provider Emergency Medicine; PCP Family Medicine
DX: M71.522 Other bursitis, not elsewhere classified, left elbow (principal)
CPT/HCPCS: 73080; 99281; 99283